=== PATIENT | female | born 1990 | race Two or more races ===

== ENCOUNTER 2025-05-19 00:37 | Emergency (ER) | payer OTHER ==
[~2025-05-19] VITALS: Ht 160 cm; Wt 86.2 kg
[2025-05-19 01:20] LABS: PLATELET COUNT (AUTO) 351 K/uL (150-450); RED BLOOD CELL COUNT(AUTO) 4.64 MIL/uL (4.0-5.2); RED CELL DISTRIBUTION WIDTH 15.0 % (11.5-15.0); WHITE BLOOD COUNT (AUTO) 11.7 K/uL (4.3-11.0)
[2025-05-19 01:27] LABS: APPEARANCE,URINE CLEAR (CLEAR); BLOOD, URINE NEGATIVE Ery/uL (NEGATIVE); LEUKOCYTE ESTERASE ,URINE NEGATIVE (NEGATIVE); NITRITE, URINE NEGATIVE (NEGATIVE); PREGNANCY TEST URINE QUAL NEGATIVE (NEGATIVE); UGLUCOSE NEGATIVE (NEGATIVE)
[2025-05-19 01:32] LABS: ASPARTATE AMINOTRANSFERASE 20 U/L (15-37); CALCIUM, SERUM 9.0 mg/dL (8.5-10.1); CREATININE 0.7 mg/dL (0.6-1.3); SODIUM SERUM 138 mmol/L (136-145); TOTAL PROTEIN, SERUM 7.6 g/dL (6.4-8.2); UREA NITROGEN, BLOOD 9 mg/dL (7-18)
[2025-05-19 01:40] LABS: ALCOHOL, BLOOD < 3 mg/dL (0-10)
[2025-05-19 01:53] LABS: ADD URINE CULTURE NO; SQUAMOUS EPITHELIAL CELL,UR Few /HPF (None Seen)
[2025-05-19 01:56] LABS: AMPHETAMINE, URINE NEGATIVE (NEGATIVE); BARBITURATE, URINE NEGATIVE (NEGATIVE); BENZODIAZEPINE, URINE NEGATIVE (NEGATIVE); COCCAINE, URINE NEGATIVE (NEGATIVE); OPIATE, URINE NEGATIVE (NEGATIVE)
[2025-05-19 01:58] LABS: CANNABINOID, URINE POSITIVE (NEGATIVE)
[2025-05-19] MEDS: ARIPIPRAZOLE 5 MG TABLET PO ONE (02:23)
[2025-05-19] MEDS: ARIPIPRAZOLE 5 MG TABLET ONE (02:46)
[2025-05-19 09:12] VITALS: BP 121/76; TEMP 98.4; O2SAT 95
== END 2025-05-19 09:13 ==
LOC: ER 00:45
DX: F31.9 Bipolar disorder, unspecified (principal); F20.9 Schizophrenia, unspecified; F41.9 Anxiety disorder, unspecified; Z60.2 Problems related to living alone
CPT/HCPCS: 36415; 80048-TC; 80076-TC; 81001; 84703-TC; 85025-TC; G0480